=== PATIENT | male | born 1930 | race Caucasian/White ===

== ENCOUNTER 2020-07-19 10:44 | Emergency (ER) | payer MEDICARE, OTHER ==
[~2020-07-19 10:44] MED LIST: ALTACE10 MG PO; BACTROBAN OINT22 GM EXT; CENTRUM SILVER1 EAC1 PO; ELIQUIS2.5 MG PO; LIPITOR TAB 2020 MG PO; LOPRESSOR100 MG PO; MICROZIDE12.5 MG PO; NORVASC10 MG PO; OMEPRAZOLE20 MG PO; TYLENOL 325MG325 MG PO
[2020-07-19 11:58] LABS: HEMOGLOBIN 11.8 gm/dl (14.0-17.5); RED BLOOD COUNT 3.78 M/UL (4.20-5.50); WHITE BLOOD COUNT 6.2 K/UL (4.5-11.0)
[2020-07-19] MEDS ORDERED: COLCHICINE0.6 M1 PO (12:43)
[2020-12-29] MEDS ORDERED: LASIX40 MG PO (10:42)
== END 2020-07-19 13:25 | disposition home or self-care (01) ==
LOC: ER1 10:44
PROVIDERS: Physician Assistant
DX: M10.9 Gout, unspecified (principal); I10 Essential (primary) hypertension; I48.91 Unspecified atrial fibrillation
CPT/HCPCS: 73610; 80053; 84550; 85025; 85652; 86140; 99283

== ENCOUNTER → 2020-12-09 | Outpatient (CLI) | payer MEDICARE, OTHER ==
[~2020-12-09] MED LIST changes: +COLCHICINE0.6 M1 PO; +LASIX40 MG PO
== END ==
LOC: KOH-I 09:14
DX: M25.561 Pain in right knee (principal); M17.11 Unilateral primary osteoarthritis, right knee
CPT/HCPCS: 73562

== ENCOUNTER 2020-12-27 11:56 | Inpatient (IN) | payer MEDICARE, OTHER ==
[~2020-12-27] VITALS: Ht 177.8 cm; Wt 80.1 kg
[~2020-12-27 11:56] MED LIST changes: -LASIX40 MG PO
[2020-12-27 13:25] LABS: HEMOGLOBIN 12.1 gm/dl (14.0-17.5); RED BLOOD COUNT 3.8 M/UL (4.20-5.50); WHITE BLOOD COUNT 5.3 K/UL (4.5-11.0)
[2020-12-27 13:52] LABS: BUN/CREATININE RATIO 26 (0-10)
[2020-12-27] MEDS ORDERED: ELIQUIS2.5 MG PO (17:40)
--- NOTE | 2020-12-28 00:20 | NUR ---
PT UNSURE OF WHAT MEDICATIONS HE HAS BEEN TAKING
[2020-12-28 03:20] LABS: RED BLOOD COUNT 3.82 M/UL (4.20-5.50); WHITE BLOOD COUNT 5.1 K/UL (4.5-11.0)
[2020-12-28 03:55] LABS: BUN/CREATININE RATIO 23 (0-10)
[2020-12-29 03:08] LABS: HEMOGLOBIN 11.8 gm/dl (14.0-17.5); RED BLOOD COUNT 3.75 M/UL (4.20-5.50); WHITE BLOOD COUNT 6.1 K/UL (4.5-11.0)
[2020-12-29] MEDS ORDERED: LASIX40 MG PO (10:42)
== END 2020-12-29 14:56 | disposition home or self-care (01) | DRG 291 ==
LOC: ER1 11:56 → CDU 15:56 → M/S 20:18
PROVIDERS: Physician Assistant; Physician Assistant Medical; ADMIT Internal Medicine
PROC: B24BZZ4 Ultrasonography of Heart with Aorta, Transesophageal (ICD-10-PCS; principal; 2020-12-27)
DX: I13.0 Hypertensive heart and chronic kidney disease with heart failure and stage 1 through stage 4 chronic kidney disease, or unspecified chronic kidney disease (principal); J96.01 Acute respiratory failure with hypoxia; I50.33 Acute on chronic diastolic (congestive) heart failure; C61 Malignant neoplasm of prostate; N18.2 Chronic kidney disease, stage 2 (mild); E87.6 Hypokalemia; M10.9 Gout, unspecified; I48.91 Unspecified atrial fibrillation; Z20.822 Contact with and (suspected) exposure to COVID-19; D63.8 Anemia in other chronic diseases classified elsewhere; I08.3 Combined rheumatic disorders of mitral, aortic and tricuspid valves; E78.5 Hyperlipidemia, unspecified; I27.20 Pulmonary hypertension, unspecified; Z79.01 Long term (current) use of anticoagulants; Z90.49 Acquired absence of other specified parts of digestive tract; Z98.42 Cataract extraction status, left eye; Z98.41 Cataract extraction status, right eye; Z82.5 Family history of asthma and other chronic lower respiratory diseases; E88.09 Other disorders of plasma-protein metabolism, not elsewhere classified
CPT/HCPCS: ECHO; 36415; 71045; 80048; 80053; 82550; 82553; 83735; 83874; 83880; 84484; 85025; 85610; 93005; 93306; 94664; 94760; 96374; 99285; J1940; U0002